=== PATIENT | male | born 1960 | race Caucasian/White ===

== ENCOUNTER 2021-12-15 18:23 | Emergency (ER) | payer SELFPAY ==
[2021-12-15] MEDS: Sodium Chloride 0.9% 1,000 ML IV ONE (19:58)
[2021-12-15] MEDS: Famotidine 20 MG/2 ML SDV IVPUSH ONE (19:59)
[2021-12-15] MEDS: methylPREDNISolone Sodium Succinate 125 MG/2 ML SDV IVPUSH ONE (19:59)
[2021-12-15] MEDS: Sodium Chloride 0.9% 2.5 ML Syringe FLUSH PRN (19:59)
[2021-12-15] MEDS: diphenhydrAMINE 50 MG/ML SDV IVPUSH ONE (19:59)
[2021-12-15] MEDS: Sodium Chloride 0.9% 10 ML Syringe FLUSH PRN (19:59)
[2021-12-15 20:01] LABS: CARBON DIOXIDE,CO2 27.7 mmol/L (21.0-32.0); POTASSIUM,K 3.9 mmol/L (3.5-5.1)
== END 2021-12-15 21:10 | disposition home or self-care (01) ==
LOC: MW.ED 18:23
DX: L25.9 Unspecified contact dermatitis, unspecified cause (principal); Z79.899 Other long term (current) drug therapy
CPT/HCPCS: 36415; 80053; 85025; 96361; 96374; 96375; 99283; J1200; J2930; J3490; J7030; 99284